=== PATIENT | male | born 1965 | race Caucasian/White ===

== ENCOUNTER 2022-05-07 02:37 | Emergency (ER) | payer MEDICARE, MEDICAID, SELFPAY ==
--- NOTE | ~2022-05-07 | XR_ITS ---
EXAMINATION: XR chest 1V portable DATE: 05/07/2022 03:22 INDICATION: Chest wall pain. TECHNIQUE: A single frontal view of the chest was obtained on 2 radiographs. COMPARISON: None. FINDINGS: There is mild atelectasis at the lung bases. There is blunting of right lateral costophreni c angle. No pneumothorax. The heart size is normal. Small median sternotomy wires are noted. IMPRESSION: 1. Mild atelectasis at the lung bases. 2. Blunting of right lateral costophrenic angle, consistent with scarring versus tiny pleural effusio n. Reviewed, dictated and finalized at location A. IMPRESSION: 1. Mild atelectasis at the lung bases. 2. Blunting of right lateral costophrenic angle, consistent with scarring versu s tiny pleural effusion.
[2022-05-07 02:45] VITALS: BP 140/76; PULSE 98; RESP 16; TEMP 36.8; O2SAT 99
--- NOTE | 2022-05-07 02:47 | ECG_ITS ---
Measurements Intervals [place] Rate: 96 P: 28 GA: 200 QRS: 95 QRSD: 124 T: 42 QT: 369 QTc: 468 Interpretive Statements SINUS RHYTHM RIGHT AXIS DEVIATION BORDERLINE AV CONDUCTION DELAY RIGHT BUNDLE BRANCH BLOCK MINIMAL Q WAVES- INFERIOR LEADS ABNORMAL ECG NO PREVIOUS ECG AVAILABLE FOR COMPARISON Electronically Signed On 05-07-2022 6:38:23 CDT by Jona Felipe D.O.
--- NOTE | 2022-05-07 02:48 | ED.GENADULT ---
HPI - General Adult General Chief complaint: Chest Pain Stated complaint: CHEST PAIN Time Seen by Provider: 05/07/22 02:39 History of Present Illness HPI narrative: 56-year-old male history of Down syndrome, COPD dialysis presented to the emergency department for evaluation of chest wall pain. Patient just moved to a new [facility] today and states he is not happy with the care there. Patient was complaining of chest wall pain and believes it was secondary to him having a Pepsi. Patient states he is not supposed to have caffeine. Patient denies any falls or injuries. Patient does have a c-collar in place that he wears for his own comfort. Patient does complain of chest wall pain and does have chest wall tenderness to palpation. Patient states that he has this pain intermittently. Patient does have a past medical history of CHF, chronic kidney disease, end-stage renal disease on hemodialysis, congenital heart disease, Down syndrome, COPD, hypothyroidism, high cholesterol, depression, hypertension. Patient had a CT scan of his neck 04/23/2022 Related Data Allergies Allergy/AdvReac Type Severity Reaction Status Date / Time risperidone Allergy Mild unknown Verified 11/21/08 13:16 Review of Systems Review of Systems: ROS unobtainable: Yes unobtainable due to medical condition Exam Narrative: APPEARANCE: Well appearing, no pain, no distress, well-nourished. HEAD: normocephalic, atraumatic. EYES: PERRLA/EOMI, conjunctivae clear. THROAT: Pharynx clear, no exudate. NECK: Supple. No adenopathy, no masses. RESPIRATORY: Airway patent, respirations nonlabored. Clear to auscultation bilaterally, no rales, rhonchi, wheezing. CARDIOVASCULAR: Regular rate and rhythm without murmurs rubs or gallops. Chest wall tenderness to palpation. ABDOMINAL: Soft, nontender, nondistended, normal bowel sounds MUSCULOSKELETAL: Moves all extremities. Strength/ROM intact, No edema, No calf tenderness. NEURO: Alert. Cranial nerves II through XII intact. Grossly intact SKIN: Dialysis fistula and left arm. No chest wall ecchymosis or deformity. PSYCHIATRIC: Normal affect/mood. Course Vital Signs Vital signs: Vital Signs Temperature 98.3 F 05/07/22 02:45 Pulse Rate 98 05/07/22 02:45 Respiratory Rate 16 05/07/22 02:45 Blood Pressure 140/76 05/07/22 02:45 Pulse Oximetry 99 05/07/22 02:45 Oxygen Delivery Room Air 05/07/22 02:45 Temperature 98.3 F 05/07/22 02:45 Pulse Rate 98 05/07/22 02:45 Respiratory Rate 16 05/07/22 02:45 Blood Pressure 140/76 05/07/22 02:45 Pulse Oximetry 99 05/07/22 02:45 Oxygen Delivery Room Air 05/07/22 02:45 Medical Decision Making Vital Signs Vital Signs: Vital Signs Temperature 98.3 F 05/07/22 02:45 Pulse Rate 98 05/07/22 02:45 Respiratory Rate 16 05/07/22 02:45 Blood Pressure 140/76 05/07/22 02:45 Pulse Oximetry 99 05/07/22 02:45 Oxygen Delivery Room Air 05/07/22 02:45 Temperature 98.3 F 05/07/22 02:45 Pulse Rate 98 05/07/22 02:45 Respiratory Rate 16 05/07/22 02:45 Blood Pressure 140/76 05/07/22 02:45 Pulse Oximetry 99 05/07/22 02:45 Oxygen Delivery Room Air 05/07/22 02:45 Lab Data Result diagrams: 05/07/22 04:03 05/07/22 04:03 Labs: Lab Results 05/07/22 05/07/22 Range/Units 04:03 04:03 WBC 7.9 (4.5-10.0) K/mm3 RBC 2.74 L (4.6-6.20) M/mm3 Hgb 10.1 L (14.0-18.0) g/dL Hct 30.3 L (42.0-52.0) % MCV 110.6 H (80-100) fl MCH 36.9 H (26-34) pg MCHC 33.3 (32-36) g/dl RDW 12.8 (11.5-14.5) % Plt Count 207 (150-375) k/mm3 MPV 9.7 (7.4-10.4) fl Immature Gran % (Auto) Not Reportable Neut % (Auto) Not Reportable Lymph % (Auto) Not Reportable [place] % (Auto) Not Reportable Eos % (Auto) Not Reportable Baso % (Auto) Not Reportable Lymph # (Auto) Not Reportable [place] # (Auto) Not Reportable Eos # (Auto) Not Reportable Baso # (
[2022-05-07 04:17] LABS: Hematocrit 30.3 % (42.0-52.0); Hemoglobin 10.1 g/dL (14.0-18.0); Mean Corpuscular HGB Conc 33.3 g/dl (32-36); Mean Corpuscular Hemoglobin 36.9 pg (26-34); Mean Corpuscular Volume 110.6 fl (80-100); Mean Platelet Volume 9.7 fl (7.4-10.4); Platelet Count Result 207 k/mm3 (150-375); Red Blood Count 2.74 M/mm3 (4.6-6.20); Red Cell Distribution Width 12.8 % (11.5-14.5); White Blood Count 7.9 K/mm3 (4.5-10.0)
[2022-05-07 04:28] LABS: Alanine Aminotransferase 23 U/L (6-50); Albumin Level 3.5 g/dL (3.5-5.1); Alkaline Phosphatase 108 U/L (38-126); Anion Gap 14 mmol/L (8-16); Aspartate Amino Transferase 32 U/L (17-59); Bilirubin,Total 0.4 mg/dL (0.2-1.3); Blood Urea Nitrogen 57 mg/dL (9-20); Calcium 9.3 mg/dL (8.4-10.2); Carbon Dioxide 26 mmol/L (22-30); Chloride 94 mmol/L (98-107); Estimated Glomerular Filt Rate 7; Glucose 118 mg/dL (65-110); Potassium 3.6 mmol/L (3.4-5.0); Sodium 134 mmol/L (137-145)
[2022-05-07 04:42] LABS: Band Neutrophils Percent 8 % (0-6); Monocytes Absolute Manual 0.55 K/mm3 (0.1-0.90); Monocytes Percent Manual 7 % (3-9); Myelocytes Percent 1 %; Neutrophils Absolute Manual 6.16 K/mm3 (1.3-6.7); Neutrophils Percent Manual 70 % (46-73); Total Cells Counted 100; Troponin I 0.065 ng/mL (0.000-0.034)
[2022-05-07 04:43] LABS: Anisocytosis 1+ (NORMAL); Macrocytosis 1+ (NORMAL); Platelet Estimate Adequate (Adequate); Spherocytes 1+ (NORMAL)
[2022-05-07 04:44] LABS: Hypochromasia 1+ (NORMAL); Stomatocytes 1+ (NORMAL)
[2022-05-07 06:28] LABS: Troponin I 0.067 ng/mL (0.000-0.034)
[2022-05-07 07:46] VITALS: BP 115/60; RESP 18; O2SAT 98
[2022-05-07 09:16] VITALS: BP 125/61; PULSE 94; RESP 20; O2SAT 99
--- NOTE | 2022-05-07 09:30 | PC.NURSE ---
called [facility] [place], [place] states pt's transport is on their way to take pt to dialysis.
[2022-05-07 09:59] VITALS: PULSE 85; RESP 18; O2SAT 100
== END 2022-05-07 10:02 ==
PROVIDERS: Emergency Provider Emergency Medicine; PCP Internal Medicine
DX: R07.89 Other chest pain (principal); I13.2 Hypertensive heart and chronic kidney disease with heart failure and with stage 5 chronic kidney disease, or end stage renal disease; N18.6 End stage renal disease; I50.9 Heart failure, unspecified; Q90.9 Down syndrome, unspecified; J44.9 Chronic obstructive pulmonary disease, unspecified; E03.9 Hypothyroidism, unspecified; E78.00 Pure hypercholesterolemia, unspecified; Q24.9 Congenital malformation of heart, unspecified; Z99.2 Dependence on renal dialysis; I45.9 Conduction disorder, unspecified; I45.10 Unspecified right bundle-branch block
CPT/HCPCS: 36415; 71045; 80053; 84484; 85025; 93005; 99284